=== PATIENT | female | born 1965 | race Caucasian/White ===

== ENCOUNTER 2016-10-30 16:12 | Outpatient (CLI) | payer OTHER ==
--- NOTE | 2016-10-30 16:39 | DIAGNOSTIC IMAGING REPORT ---
PROCEDURE: XR FINGER - LEFT INDICATION: Chronic left thumb pain. TECHNIQUE: A P hand and two views of the left first digit. COMPARISON: None. FINDINGS: No acute fracture or dislocation. Old avulsion fracture of the ulnar styloid. Moderate degenerative changes of the first PIP and all the DIP joints. Soft tissues are unremarkable. IMPRESSION: 1. 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 Moderate osteoarthritic changes of the second through fifth DIP joints
== END 2016-10-30 23:00 ==
LOC: XR SRH 16:12
DX: M19.042 Primary osteoarthritis, left hand (principal)